=== PATIENT | female | born 1990 | race African-American/Black ===

== ENCOUNTER 2019-02-09 21:15 | Emergency (ER) | payer SELFPAY ==
--- NOTE | 2019-02-09 22:43 | Event Note ---
ED Screening Note Date of service: 02/09/19 Time: 22:39 ED Screening Note: 28 y/o female that is 8 weeks preg comes in for N/V and abd pain. LMP 11/24/18. This initial assessment/diagnostic orders/clinical plan/treatment(s) is/are subject to change based on patients health status, clinical progression and re- assessment by fellow clinical providers in the ED. Further treatment and workup at subsequent clinical providers discretion. Patient/guardian urged not to elope from the ED as their condition may be serious if not clinically assessed and managed. Initial orders include:
--- NOTE | 2019-02-09 23:58 | Ultrasound Report ---
Of the ultrasound FINDINGS: Single fetus is identified. Appropriate measurements reveal an MA of 10 weeks 5 days for an EDC of 09/02/2019. heart rate is 1 53 bpm. Cervix measures 3.1 cm and is closed. Both ovaries a re normal. No hemorrhage or free fluid. No definite abnormality. Signer Name: Gonsalo Kohler MD Signed: 02/09/2019 11:54 PM Workstation Name: [id number]
[2019-02-10 01:45] LABS: Mucus,Urine 3+ /HPF
[2019-02-10 02:31] LABS: Bacteria,Urine 2+ /HPF (Negative); Hyaline Casts,Urine 3 /LPF
[2019-02-10 02:44] LABS: Color,Urine Brown (Yellow)
[2019-02-10 02:45] LABS: Bilirubin,Urine Negative (Negative)
[2019-02-10] MEDS ORDERED: TYLENOL PO ONE (02:45)
[2019-02-10 02:46] LABS: Blood,Urine Small (Negative)
[2019-02-10 02:51] VITALS: BP 111/65
[2019-02-10 03:19] LABS: Basophils % (Auto) 0.5 % (0.0-1.8); Eosinophils # (Auto) 0.1 K/mm3 (0.0-0.4); Eosinophils % (Auto) 0.9 % (0.0-4.3); Hemoglobin 13.6 gm/dl (10.1-14.3); Lymphocytes # (Auto) 1.6 K/mm3 (1.2-5.4); Lymphocytes % (Auto) 18.8 % (13.4-35.0); Mean Corpuscular HGB Conc 34 % (30-34); Mean Corpuscular Volume 83 fl (79-97); Monocytes # (Auto) 0.6 K/mm3 (0.0-0.8); Monocytes % (Auto) 7.4 % (0.0-7.3); Platelet Count 205 K/mm3 (140-440); Red Blood Count 4.82 M/mm3 (3.65-5.03); Red Cell Distribution Width 13.7 % (13.2-15.2)
[2019-02-10 03:35] LABS: Alanine Aminotransferase 29 units/L (7-56); Albumin 4.8 g/dL (3.9-5); BUN/Creatinine Ratio 43; Blood Urea Nitrogen 17 mg/dL (7-17); Calcium 9.5 mg/dL (8.4-10.2); Hemolysis Index 6
[2019-02-10] MEDS ORDERED: ROCEPHIN/NS 1 GM/50 ML 1 GM/50 ML BAG IV ONE (03:49)
[2019-02-10] MEDS ORDERED: ROCEPHIN IM ONE ×2 (04:44→04:46)
[2019-02-10] MEDS ORDERED: XYLOCAINE 1% MPF 5 mL ONE (04:44)
[2019-02-10] MEDS ORDERED: XYLOCAINE 1% MPF 5 mL INFILTRATI ONE (04:46)
--- NOTE | 2019-02-10 05:19 | Emergency Department Report ---
ED N/V/D HPI - General Chief complaint: Nausea/Vomiting/Diarrhea Stated complaint: 8WEEKS PREG VOMITING Time Seen by Provider: 02/09/19 22:38 Source: patient Mode of arrival: Ambulatory Limitations: Language Barrier - History of Present Illness Initial comments: Patient is a A0 28-year-old [place] female who is approximately 8 weeks gestation who presents with a ED report persistent intractable nausea and vomiting and suprapubic pain for the last 1 month worse in the last 4 days. The patient states that she's not been able to eat anything or keep anything down because of severe nausea and vomiting. Patient states that she has not been evaluated by any ACCOUNTING ANALYST physician. Patient denies vaginal bleeding, dizziness, fever, chills, dysuria, urinary frequency and urgency, low back pain, headache, chest pain or shortness of breath. MD complaint: nausea, vomiting, abdominal pain -: Sudden, month(s) (1) Description of Vomiting: food contents, watery, bilious Associated Abdominal Pain: Yes (suprapubic) Radiation: none Severity: severe Pain Scale: 7 Quality: cramping, aching Consistency: constant Improves with: none Worsens with: vomiting, movement Context: other (8 weeks gestation) Associated Symptoms: denies other symptoms, headaches, loss of appetite, malaise, nausea/vomiting. denies: myalgias, chest pain, cough, diaphoresis, fever/chills, rash, dysuria, shortness of breath, syncope, weakness - Related Data Previous Rx's Medication Instructions Recorded Last Taken Type Acetaminophen [Acetaminophen TAB] 500 mg PO Q6HR #30 tablet 02/10/19 Unknown Rx Promethazine [Phenergan] 25 mg PO Q6HR PRN #30 tab 02/10/19 Unknown Rx Promethazine [Phenergan] 25 mg MN Q6HR PRN #15 supp.rect 02/10/19 Unknown Rx cephALEXin [Keflex] 500 mg PO Q6HR #40 capsule 02/10/19 Unknown Rx Allergies Allergy/AdvReac Type Severity Reaction Status Date / Time No Known Allergies Allergy Verified 02/10/19 04:47 ED Review of Systems ROS: Stated complaint: 8WEEKS PREG VOMITING Other details as noted in HPI Constitutional: denies: chills, fever Eyes: denies: eye pain, eye discharge, vision change ENT: denies: ear pain, throat pain Respiratory: denies: cough, shortness of breath, wheezing Cardiovascular: denies: chest pain, palpitations Endocrine: no symptoms reported Gastrointestinal: abdominal pain, nausea, vomiting. denies: diarrhea Genitourinary: denies: urgency, dysuria, discharge Musculoskeletal: denies: back pain, joint swelling, arthralgia Skin: denies: rash, lesions Neurological: denies: headache, weakness, paresthesias Psychiatric: denies: anxiety, depression Hematological/Lymphatic: denies: easy bleeding, easy bruising ED Past Medical Hx - Past Medical History Previous Medical History?: No - Surgical History Past Surgical History?: No - Social History Smoking Status: Never Smoker Substance Use Type: None - Medications Home Medications: Home Medications Medication Instructions Recorded Confirmed Last Taken Type Acetaminophen [Acetaminophen TAB] 500 mg PO Q6HR #30 tablet 02/10/19 Unknown Rx Promethazine [Phenergan] 25 mg PO Q6HR PRN #30 tab 02/10/19 Unknown Rx Promethazine [Phenergan] 25 mg MN Q6HR PRN #15 supp.rect 02/10/19 Unknown Rx cephALEXin [Keflex] 500 mg PO Q6HR #40 capsule 02/10/19 Unknown Rx ED Physical Exam - General Limitations: Language Barrier General appearance: alert, in no apparent distress - Head Head exam: Present: atraumatic, normocephalic, normal inspection - Eye Eye exam: Present: normal appearance, PERRL, EOMI Pupils: Present: normal accommodation - ENT ENT exam: Present: normal exam, normal orophraynx, mucous membranes moist, TM's normal bilaterally, normal external ear exam - Neck Neck exam: Present: normal inspection, full ROM - Respiratory Respiratory exam: Present: normal lung sounds bilaterally. Absent: respiratory distress, wheezes, rales, rhonchi, chest wall tenderness, accessory muscle use, decreased breath sounds, prolonged expiratory - Cardiovascular Cardiovascular Exam: Present: regular rate, normal rhythm, normal heart sounds. Absent: systolic murmur, diastolic murmur, rubs, gallop - GI/Abdominal GI/Abdominal exam: Present: soft, tenderness (suprapubic), normal bowel sounds. Absent: guarding, rebound, rigid, hyperactive bowel sounds, hypoactive bowel sounds, organomegaly, bruit - Rectal Rectal exam: Present: deferred - Extremities Exam Extremities exam: Present: normal inspection, full ROM, normal capillary refill - Back Exam Back exam: Present: normal inspection, full ROM. Absent: tenderness, CVA tenderness (R), CVA tenderness (L), muscle spasm - Neurological Exam Neurological exam: Present: alert, oriented X3, CN II-XII intact, normal gait, reflexes normal - Psychiatric Psychiatric exam: Present: normal affect, normal mood - Skin Skin exam: Present: warm, dry, intact, normal color. Absent: rash ED Course Vital Signs 02/09/19 02/10/19 22:37 02:50 Temperature 98.9 F 97.6 F Pulse Rate 74 78 Respiratory 18 16 Rate Blood Pressure 112/81 Blood Pressure 111/65 [Left] O2 Sat by Pulse 98 97 Oximetry - Reevaluation(s) Reevaluation #1: 02/10/19 05:24 This is a 28-year-old female who is approximately 10 weeks gestation who presented to the ED with intractable nausea and vomiting and pelvic pain. Patient is alert and oriented 3 and appears to be in no distress. Lab test results were reviewed and is significant for hCG Quant of [id number], and significant urinary tract infection. Transvaginal ultrasound shows a single live IUP of approximately 10 weeks and 5 days with a heart rate of 153 bpm the cervix med shot 3.1 cm undisclosed in both ovaries are normal. No hemorrh age or free fluid identified. Patient was treated for nausea and vomiting and pain in the ED, and also received Rocephin 1 g intramuscular injection in the ED. Patient passed oral fluid challenge in the ED. On reevaluation, patient felt better and has been sleeping in the ED comfortably. Patient was discharged home on antibiotics, and antiemetics and advised to follow-up with the ACCOUNTING ANALYST physician in 5-7 days for reevaluation. Patient was advised to return to the ED immediately if symptoms get worse. Patient was given a referral to the ACCOUNTING ANALYST physician Dr. Yamel Dutta for follow-up. 02/10/19 05:26 ED Medical Decision Making - Lab Data Result diagrams: 02/10/19 02:58 02/10/19 02:58 - Radiology Data Radiology results: report reviewed, image reviewed Transvaginal ultrasound shows a single live IUP of approximately 10 weeks and 5 days with a heart rate of 153 bpm the cervix med shot 3.1 cm undisclosed in both ovaries are normal. No hemorrhage or free fluid identified. - Medical Decision Making This is a 28-year-old female who is approximately 10 weeks gestation who presented to the ED with intractable nausea and vomiting and pelvic pain. Patient is alert and oriented 3 and appears to be in no distress. Lab test results were reviewed and is significant for hCG Quant of [id number], and significant urinary tract infection. Transvaginal ultrasound shows a single live IUP of approximately 10 weeks and 5 days with a heart rate of 153 bpm the cervix med shot 3.1 cm undisclosed in both ovaries are normal. No hemorrhage or free fluid identified. Patient was treated for nausea and vomiting and pain in the ED, and also received Rocephin 1 g intramuscular injection in the ED. Patient passed oral fluid challenge in the ED. On reevaluation, patient felt better and has been sleeping in the ED comfortably. Patient was discharged home on antibiotics, and antiemetics and advised to follow-up with the ACCOUNTING ANALYST physician in 5-7 days for reevaluation. Patient was advised to return to the ED immediately if symptoms get worse. Patient was given a referral to the ACCOUNTING ANALYST physician Dr. Yamel Dutta for follow-up. - Differential Diagnosis Hyperemesis gravidarum; Abdominal pain, Acute UTI, Critical care attestation.: If time is entered above; I have spent that time in minutes in the direct care of this critically ill patient, excluding procedure time. ED Disposition Clinical Impression: Hyperemesis gravidarum, Acute urinary tract infection Abdominal pain during Qualifiers: Trimester: first trimester Qualified Code(s): O26.891 - Other specified related conditions, first trimester; R10.9 - Unspecified abdominal pain Disposition: DC-01 TO HOME OR SELFCARE Is pt being admited?: No Does the pt Need Aspirin: No Condition: Stable Instructions: Hyperemesis Gravidarum (ED), Abdominal Pain in (ED), Urinary Tract Infection in Women (ED) Additional Instructions: Maintain a complete pelvic rest until followed up by the ACCOUNTING ANALYST physician, take medications and drink plenty of fluids, and follow up with the ACCOUNTING ANALYST physician in 5-7 days for reevaluation. Return to the ED immediately if symptoms get worse. Prescriptions: Acetaminophen [Acetaminophen TAB] 500 mg PO Q6HR #30 tablet cephALEXin [Keflex] 500 mg PO Q6HR #40 capsule Promethazine [Phenergan] 25 mg PO Q6HR PRN #30 tab PRN Reason: Nausea Promethazine [Phenergan] 25 mg MN Q6HR PRN #15 supp.rect PRN Reason: Nausea Referrals: DONNIE DUTTA MD [Staff Physician] - 3-5 Days Time of Disposition: 05:21 Print Language: TURKMEN
== END 2019-02-10 05:42 | disposition home or self-care (01) ==
LOC: ED 21:15
DX: O21.0 Mild hyperemesis gravidarum (principal); O23.41 Unspecified infection of urinary tract in pregnancy, first trimester; Z3A.08 8 weeks gestation of pregnancy
CPT/HCPCS: 36415; 76801; 80053; 81001; 83690; 84702; 85025; 87086; 96372; 99284; J0696